=== PATIENT | female | born 1985 | race Caucasian/White ===

== ENCOUNTER 2018-07-21 19:50 | Emergency (ER) | payer MEDICAID ==
[2018-07-21 20:18] VITALS: BMI 20.5
[2018-07-21 20:19] VITALS: RESP 18
[2018-07-21 21:13] LABS: INFLUENZA A B NEGATIVE FOR FLU A/B (NEGATIVE)
[2018-07-21 22:41] VITALS: BP 117/67; PULSE 90; TEMP 97.8; O2SAT 100
--- NOTE | 2018-07-21 23:53 | ED PDOC ---
Arrival/HPI - General Chief Complaint: Fever Time Seen by Provider: 07/21/18 20:27 Historian: Patient - History of Present Illness Narrative History of Present Illness (Text): 07/21/18 23:51 32 y/o female with no significant PMH presents to the ED c/o fever x 1 day. Associated sore throat, headache, cough, and hoarse voice. Cough is productive of yellow sputum. Pt took ibuprofen this morning without relief. Denies sick contacts or recent travel. No back pain, neck pain/stiffness, nausea, vomiting, abdominal pain, dizziness, vision changes, drooling, urinary symptoms, or any other associated complaints. Past Medical History - Provider Review Nursing Documentation Reviewed: Yes - Infectious Disease Hx of Infectious Diseases: None - Psychiatric Hx Substance Use: No Family/Social History - Physician Review Nursing Documentation Reviewed: Yes Family/Social History: No Known Family HX Smoking Status: Never Smoked Hx Alcohol Use: No Hx Substance Use: No Allergies/Home Meds Allergies/Adverse Reactions: Allergies No Known Allergies Allergy (Verified 07/21/18 20:19) Review of Systems - Physician Review All systems were reviewed & negative as marked: Yes - Review of Systems Constitutional: Fatigue, Fevers Eyes: Normal. absent: Vision Changes, Photophobia, Eye Pain ENT: Sore Throat, Sinus Congestion Respiratory: Cough. absent: SOB Cardiovascular: Normal. absent: Chest Pain, Palpitations, Syncope Gastrointestinal: Normal. absent: Abdominal Pain, Nausea, Vomiting Genitourinary Female: Normal. absent: Dysuria, Frequency Musculoskeletal: Normal. absent: Arthralgias, Back Pain Skin: Normal. absent: Rash Neurological: Headache. absent: Dizziness Endocrine: Normal Hemo/Lymphatic: Normal Psychiatric: Normal Physical Exam Vital Signs Reviewed: Yes Vital Signs Temp Pulse Resp BP Pulse Ox 07/21/18 22:39 97.8 F 90 18 117/67 100 07/21/18 20:18 98.5 F 100 H 18 107/70 99 Temperature: Afebrile Blood Pressure: Normal Pulse: Tachycardic Respiratory Rate: Normal Appearance: Positive for: Well-Appearing, Non-Toxic, Comfortable Pain Distress: None Mental Status: Positive for: Alert and Oriented X 3 - Systems Exam Head: Present: Atraumatic, Normocephalic Pupils: Present: PERRL Extroacular Muscles: Present: EOMI Conjunctiva: Present: Normal Mouth: Present: Moist Mucous Membranes Neck: Present: Normal Range of Motion. No: Meningeal Signs Respiratory/Chest: Present: Clear to Auscultation, Good Air Exchange. No: Respiratory Distress, Accessory Muscle Use Cardiovascular: Present: Regular Rate and Rhythm, Normal S1, S2, Peripheal Pulses Present Abdomen: Present: Normal Bowel Sounds. No: Tenderness, Distention, Peritoneal Signs, Rebound, Guarding Back: Present: Normal Inspection. No: CVA Tenderness, Paraspinal Tenderness Upper Extremity: Present: Normal Inspection, Normal ROM, NORMAL PULSES, Neurovascularly Intact, Capillary Refill < 2s. No: Cyanosis, Edema, Temperature Abnormalties Lower Extremity: Present: Normal Inspection, NORMAL PULSES, Normal ROM, Neurovascularly Intact, Capillary Refill < 2 s. No: Edema, Temperature Abnormalties Neurological: Present: GCS=15, CN II-XII Intact, Speech Normal, Motor Func Grossly Intact, Normal Sensory Function, Gait Normal Skin: Present: Warm, Dry, Normal Color. No: Rashes Lymphatic: Present: Cervical Adenopathy (right anterior cervical ) Psychiatric: Present: Alert, Oriented x 3, Normal Insight, Normal Concentration, Normal Affect, Normal Mood Medical Decision Making ED Course and Treatment: Initial Plan: * Rapid Flu * Rapid Strep * CXR Rapid flu negative Rapid strep negative Xray shows questionable opacity in RLL, pending official read. Will prescribe Z- elizabeth and recommend primary followup. Diagnostic testing results and plan of care discussed with patient. Strict instructions given regarding prescription use, importance of followup, and signs/symptoms to return to ER including SOB, chest pain, or any other new/worsening symptoms. Pt verbalized understanding of discussion. Patient is A&Ox3, ambulating with steady gait, with vital signs stable for discharge. - RAD Interpretation Radiology Orders: 07/21/18 20:29 CHEST TWO VIEWS (PA/LAT) [RAD] Stat - Medication Orders Current Medication Orders: Discontinued Medications Acetaminophen (Tylenol 325mg Tab) 650 mg PO STAT STA Stop: 07/21/18 21:16 Last Admin: 07/21/18 21:58 Dose: 650 mg MAR Pain/Vitals Document 07/21/18 21:58 OCS (Rec: 07/21/18 21:58 OCS [facility] [id number]) Pain Reassessment Is This A Pain ReAssessment? No Sleep Is patient sleeping during reassessment? No Presence of Pain Presence of Pain Yes Azithromycin (Zithromax) 500 mg PO STAT STA; Protocol Stop: 07/21/18 22:27 Last Admin: 07/21/18 22:38 Dose: 500 mg Disposition/Present on Arrival - Present on Arrival Any Indicators Present on Arrival: No History of DVT/PE: No History of Uncontrolled Diabetes: No Urinary Catheter: No History of Decub. Ulcer: No History Surgical Site Infection Following: None - Disposition Have Diagnosis and Disposition been Completed?: Yes Diagnosis: Lower respiratory infection Disposition: HOME/ ROUTINE Disposition Time: 22:30 Condition: STABLE Discharge Instructions (ExitCare): Pneumonia, Adult (DC) Additional Instructions: Azithromycin daily for 4 more days Increase fluids Rest, no strenuous activity Followup with primary doctor within 2 days Return to ER with any new/worsening symptoms Prescriptions: Azithromycin 250 mg PO DAILY #4 tab Referrals: Maricarmen Mtz MD [Medical Doctor] - Follow up with primary [facility] [place] [Outside] - Follow up with primary Forms: [facility] (Indonesian), WORK NOTE
--- NOTE | 2018-07-22 09:18 | RAD ---
Date of service: 07/21/2018 HISTORY: fever, cough COMPARISON: No prior. TECHNIQUE: Chest PA and lateral FINDINGS: LUNGS: No active pulmonary disease. PLEURA: No significant pleural effusion identified. No pneumothorax apparent. CARDIOVASCULAR: No aortic atherosclerotic calcification present. Normal cardiac size. No pulmonary vascular congestion. OSSEOUS STRUCTURES: No significant abnormalities. VISUALIZED UPPER ABDOMEN: Normal. OTHER FINDINGS: None. IMPRESSION: No active disease.
== END 2018-07-21 22:49 | disposition home or self-care (01) ==
LOC: ED 19:50
DX: J22 Unspecified acute lower respiratory infection (principal)